=== PATIENT | female | born 1990 | race Caucasian/White ===

== ENCOUNTER 2020-03-31 14:47 | Outpatient (REF) | payer MEDICAID, SELFPAY ==
[2020-04-03 16:35] LABS: COVID-19 RT-PCR Result NEGATIVE (Negative)
== END 2020-03-31 15:07 ==
LOC: NCHCN 14:47
PROVIDERS: PCP Nurse Practitioner Family; Visit Provider Nurse Practitioner Family
DX: R11.2 Nausea with vomiting, unspecified (principal)
CPT/HCPCS: U0003

== ENCOUNTER 2024-06-08 16:36 | Emergency (ER) | payer BC, SELFPAY ==
[2024-06-08 16:41] VITALS: BP 121/86; PULSE 101; RESP 18; TEMP 36.6; O2SAT 98
--- NOTE | 2024-06-08 17:10 | ED.GENADUL_ITS ---
Discharge Plan Disposition Patient Disposition: Home Condition: Good Discharge Details Clinical Impression: Vomiting Primary Care Provider: None,None ED Provider: Carolyn Goldberg Home Meds and New Rx's Prescriptions: New ondansetron 4 mg tablet,disintegrating 4 mg PO Q12H PRNQty: 10 0RF Discharge Instructions Instructions: Nausea and Vomiting, Adult ED Additional Instructions: Ondansetron up to twice a day as needed for nausea or vomiting. Please establish care with primary care doctor as soon as possible. Return to the emergency department for new or worsening symptoms including new/different/worse abdominal pain, inability to keep down fluids, feeling like you are going to pass out, or if you have any other concerns. HPI General Mode of arrival: ambulatory . Date/Time Provider Initiated Documentation: 06/08/24 16:46 . Limitations to Documentation: no limitations . Information obtained by: patient and family . HPI Narrative: 33yo F with chronic nausea presenting with more intense nausea and vomiting. Reports that she is frequently nauseated in the morning including as a child; took zofran as child which seemed to help but has not been on 'in a long time'. This morning woke with more severe nausea than usual, unable to drive to work. Several episodes of non-bloody non-bilious emesis. Epigastric abdominal pain; no lower abdominal pain. Last BM today, hard and difficult to pass, no blood but did look dark. Sometimes feels lightheaded when standing. Tried pepto bismol this morning with no improvement; scalding hot showers are the only thing that really seems to help when nausea gets bad. Smokes marijuana daily. Otherwise in her usual state of health with no fevers, rash, dysuria, hematuria, chest pain, shortness of breath, head injuries, or other concerns. Related Data Home Medications ?Medication ?Instructions ?Recorded ?Confirmed ondansetron 4 mg disintegrating 4 mg PO Q12H PRN #10 tabs 06/08/24 tablet Previous Rx's ?Medication ?Instructions ?Recorded ondansetron 4 mg disintegrating 4 mg PO Q12H PRN #10 tabs 06/08/24 tablet Allergies Allergy/AdvReac Type Severity Reaction Status Date / Time No Known Allergies Allergy Unverified 06/08/24 16:48 General Stated Complaint: Abd Prob ALOK: 3 Review of Systems Narrative: see HPI Exam Narrative Exam Narrative: General: Alert, well appearing, well nourished, in no acute distress. Head: Normocephalic, atraumatic Neck: Trachea midline, ?Neck supple. ENT: ?Slightly dry MM.? No oropharygeal lesions or exudate. Cardiac: ?RRR, no murmurs appreciated Resp: No respiratory distress. CTAB. Abd: ?Soft, non-distended, mild tenderness to epigastrium with no rebound or guarding. : ?No suprapubic tenderness. Extremities: ?No deformities.? No peripheral edema. Neurologic: GCS 15. ? Moves all extremities freely against gravity Course Vital Signs Vital signs: Vital Signs Temperature 36.6 C 06/08/24 16:41 Pulse 101 H 06/08/24 16:41 Respiratory Rate 18 06/08/24 16:41 Blood Pressure 121/86 06/08/24 16:41 Pulse Oximetry 98 06/08/24 16:41 Temperature 36.6 C 06/08/24 16:41 Temperature Source Tympanic 06/08/24 16:41 Pulse 101 H 06/08/24 16:41 Respiratory Rate 18 06/08/24 16:41 Blood Pressure 121/86 06/08/24 16:41 Blood Pressure Position Sitting 06/08/24 16:41 Pulse Oximetry 98 06/08/24 16:41 Oxygen Delivery Method Room Air 06/08/24 16:41 Oxygen Flow Rate 0 06/08/24 16:41 Pain Level 8 06/08/24 16:41 Lab/Test Results Lab/Test Results: POC- Test(urine) Negative Medical Decision Making 33yo F with chronic nausea presenting with more intense nausea and vomiting. Today unable to drive to work, several episodes of vomiting. Daily marijuana smoke; scalding hot showers are the only thing that really seems to help when nausea gets bad. Slightly tachycardiac to low 100's on arrival; HR in low 90's on my exam. Minimal epigastric tenderness on exam, negative moncada's. Low suspicion for cholecystitis, choledocolithiasis, other acute gallbladder pathology, appendicitis, bowel obstruction, perforated ulcer, or other surgical intraabdominal process. Would not get CT or transfer for US. Will give 1L IVFB and IV zofran while awaiting results of laboratory workup. Labs reviewed as below, CBC with mild leukocytosis (nonspecifc) and no anemia (unlikely significant GI bleed), CMP with no actionable abnormalities, Mg slightly low at 1.7 (oral replacement ordered), lipase normal (unlikely pancreatitis),upreg negative. Respiratory swabs negative for COVID and flu. On reassessment pt reports feeling much better. Abdominal exam remains reassuring. Normal vital signs. PO challenged and tolerated well. Requesting discharge home which is reasonable. Will prescribe short course of zofran. Discharge instructions and return precautions were reviewed with patient who verbalized understanding. All questions were answered and she is in full agreement with the plan. Lab Data Lab results reviewed: Yes I reviewed the patient's lab results. Labs: Laboratory Tests Range/Units 06/08/24 17:22 WBC (4.4-10.8) 10^3/uL 11.42 H RBC (3.93-5.22) 10^6/uL 4.11 Hgb (11.2-15.7) g/dL 12.8 Hct (36.0-46.0) % 37.3 MCV (80-95) fL 91 MCH (27.0-33.0) pg 31.1 MCHC (32.0-36.0) % 34.3 RDW (11.7-14.6) % 12.4 Plt Count (130-400) 10^3/uL 246 MPV (8.0-11.0) fL 11.5 H Immature Gran % % 0.4 Neutrophils % % 86.7 Lymphocytes % % 9.9 Monocytes % % 2.4 Eosinophils % % 0.2 Basophils % % 0.4 Nucleated RBC % (0.0-0.3) % 0.0 Absolute Neutrophils (1.2-6.7) 10^3/uL 9.90 H Absolute Lymphocytes (1.2-3.4) 10^3/uL 1.13 L Absolute Monocytes (0.1-0.8) 10^3/uL 0.27 Absolute Eosinophils (0.0-0.7) 10^3/uL 0.02 Absolute Basophils (0.0-0.2) 10^3/uL 0.05 Sodium (136-145) mmol/L 139 Potassium (3.5-5.1) mmol/L 3.6 Chloride (98-107) mmol/L 105 Carbon Dioxide (21.0-32.0) mmol/L 23.9 Anion Gap (3-11) mmol/L 10.1 BUN (7-18) mg/dL 7 Creatinine (0.55-1.02) mg/dL 0.8 Est GFR (CKD-EPI 2020) (mL/min/1.73m2) 100.96 Glucose (74-106) mg/dL 92 Calcium (8.5-10.1) mg/dL 8.7 Magnesium (1.8-2.4) mg/dL 1.7 L Total Bilirubin (0.2-1.0) mg/dL 0.57 AST (15-37) U/L 11 L ALT (14-59) U/L 14 Alkaline Phosphatase (46-116) U/L 46 Total Protein (6.4-8.2) g/dL 8.2 Albumin (3.4-5.0) g/dL 4.2 Lipase (<78) U/L 15 Quality:SDOH Health Related Social Needs: No Data to Display PFSH All Active Problems (Updated 06/08/24 @ 20:10 by Carolyn Goldberg MD) Vomiting (Acute) Medical History (Updated 06/08/24 @ 20:10 by Carolyn Goldberg MD) Tobacco use Hx of chlamydia infection Social History Smoking/Tobacco Use Status: Current every day Smoking risk assessment performed?: Yes Alcohol Intake: current Alcohol Intake frequency: holidays/special occasions only Alcohol type: other Drug use: Never Do you feel safe in your relationship?: Yes
[2024-06-08 17:26] VITALS: PULSE 89; RESP 16; TEMP 36.5; O2SAT 99
[2024-06-08] MEDS: Normal Saline 1,000 ML 1000 ML IV (17:30)
[2024-06-08 17:55] LABS: Abs Immature Grans 0.05 10^3/uL (0.0-0.06); Absolute Eosinophil Count 0.02 10^3/uL (0.0-0.7); Absolute Lymphocyte Count 1.13 10^3/uL (1.2-3.4); Absolute Monocyte Count 0.27 10^3/uL (0.1-0.8); Basophils % 0.4 %; Eosinophils % 0.2 %; HCT 37.3 % (36.0-46.0); HGB 12.8 g/dL (11.2-15.7); Immature Grans % 0.4 %; Lymphocytes % 9.9 %; MCH 31.1 pg (27.0-33.0); MCHC 34.3 % (32.0-36.0); MCV 91 fL (80-95); MPV 11.5 fL (8.0-11.0); Monocytes % 2.4 %; Neutrophils % 86.7 %; Platelet Count 246 10^3/uL (130-400); RBC 4.11 10^6/uL (3.93-5.22); RDW 12.4 % (11.7-14.6); RDW-SD 40.7 fL; WBC 11.42 10^3/uL (4.4-10.8)
[2024-06-08 17:58] LABS: ALT 14 U/L (14-59); AST 11 U/L (15-37); Albumin 4.2 g/dL (3.4-5.0); Alkaline Phosphatase 46 U/L (46-116); Anion Gap 10.1 mmol/L (3-11); BUN 7 mg/dL (7-18); Bilirubin, Total 0.57 mg/dL (0.2-1.0); CO2 23.9 mmol/L (21.0-32.0); CREATININE 0.8 mg/dL (0.55-1.02); Calcium 8.7 mg/dL (8.5-10.1); Chloride 105 mmol/L (98-107); Estimated GFR 100.96 (mL/min/1.73m2); Glucose 92 mg/dL (74-106); Lipase 15 U/L (<78); Magnesium 1.7 mg/dL (1.8-2.4); Potassium 3.6 mmol/L (3.5-5.1); Sodium 139 mmol/L (136-145); Total Protein 8.2 g/dL (6.4-8.2)
[2024-06-08 18:10] LABS: Absolute Basophil Count 0.05 10^3/uL (0.0-0.2)
[2024-06-08 20:25] VITALS: PULSE 88; RESP 16
== END 2024-06-08 20:26 | disposition home or self-care (01) ==
PROVIDERS: Emergency Provider Student in an Organized Health Care Education/Training Program
DX: R11.2 Nausea with vomiting, unspecified (principal); R10.13 Epigastric pain; E83.42 Hypomagnesemia; F17.200 Nicotine dependence, unspecified, uncomplicated
CPT/HCPCS: 36415; 80053; 81025; 83690; 87426; 96360; 96361; 99284; 83735; 85025